=== PATIENT | male | born 1975 | race Caucasian/White ===

== ENCOUNTER 2018-03-16 10:52 | Emergency (ER) | payer OTHER ==
[2018-03-16 11:04] VITALS: BP 150/88
--- NOTE | 2018-03-16 13:05 | ED Physician Documentation ---
History of Present Illness - Stated complaint Stated Complaint: PANIC ATTACK - Chief complaint Chief Complaint: MHE - History obtained from History obtained from: Patient - History of Present Illness Timing: Today Pain level max: 0 Pain level now: 0 Improved by: nothing Worsened by: stress, divorce - Additonal information Additional information: Patient is a 43-year-old male who presents to the emergency department with increasing anxiety over the past week or 2. He does have a history of anxiety as well as schizoaffective disorder. He is going through a divorce. Does not currently feel suicidal or homicidal. Is not having hallucinations. Has a primary care provider at the [employer] [facility] but has not seen them yet about this. He has an appointment with his counselor next week. He is requesting something to help with anxiety. Review of Systems Constitutional: denies: Fever, Chills Ears: denies: Ear pain Nose: denies: Rhinorrhea / runny nose, Congestion Throat: denies: Sore throat Cardiac: denies: Chest pain / pressure Respiratory: denies: Dyspnea GI: denies: Nausea, Vomiting, Diarrhea Skin: denies: Rash Musculoskeletal: denies: Neck pain, Back pain Neurologic: denies: Focal weakness, Numbness, Headache Psychiatric: reports: Anxiety. denies: Depressed, Suicidal, Homicidal, Hallucinations PD PAST MEDICAL HISTORY - Past Medical History Past Medical History: Yes Psych: Anxiety, Other (schizoaffective.) - Present Medications Home Medications: Ambulatory Orders Medication Instructions Recorded Confirmed LORazepam [Ativan] 0.5 mg PO Q8H PRN #10 tablet 03/16/18 - Allergies Allergies/Adverse Reactions: Allergies Allergy/AdvReac Type Severity Reaction Status Date / Time No Known Drug Allergies Allergy Verified 03/16/18 11:05 PD ED PE NORMAL - Vitals Vital signs reviewed: Yes - General General: Alert and oriented X 3, No acute distress, Well developed/nourished, Other (well groomed) - HEENT HEENT: PERRL, Moist mucous membranes - Neck Neck: Supple, no meningeal sign - Cardiac Cardiac: RRR, Strong equal pulses - Respiratory Respiratory: No respiratory distress, Clear bilaterally - Abdomen Abdomen: Soft, Non tender, Non distended - Derm Derm: Warm and dry - Extremities Extremities: No edema - Neuro Neuro: Alert and oriented X 3 - Psych Psych: Normal mood, Normal affect Results - Vitals Vitals: Vital Signs - 24 hr 03/16/18 11:00 Temperature 36 C L Heart Rate 65 Respiratory 16 Rate Blood Pressure 150/88 H O2 Saturation 99 Oxygen O2 Source Room air PD MEDICAL DECISION MAKING - ED course Complexity details: considered differential, d/w patient ED course: Patient is a 43-year-old male who presents to the emergency department with what appears to be increasing anxiety. He is well-appearing, nontoxic. Afebrile. No suicidal or homicidal ideation. Crisis resources given. He is able to contract for safety. Will prescribe Ativan for him and follow-up with his doctor. Patient counseled regarding signs and symptoms for which I believe and urgent re-evaluation would be necessary. Patient with good understanding of and agreement to plan and is comfortable going home at this time This document was made in part using voice recognition software. While efforts are made to proofread this document, sound alike and grammatical errors may occur. Departure - Departure Disposition: 01 Home, Self Care Clinical Impression: Anxiety Condition: Good Instructions: ED Panic Attack Follow-Up: ANKUR TRINH [Primary Care Provider] - Within 1 week Prescriptions: LORazepam [Ativan] 0.5 mg PO Q8H PRN #10 tablet PRN Reason: anxiety Comments: Use the Ativan as needed for anxiety. Follow-up with your doctor for further care. Crisis Line and is available to talk to someone [email or web address] is also available to chat with someone online if you prefer. There are also many resources on this website and apps for your phone to help with your mental health You can also text the word START to [phone] to chat with someome via text.
== END 2018-03-16 13:13 | disposition home or self-care (01) ==
LOC: ED 10:52
DX: F41.9 Anxiety disorder, unspecified (principal); F25.9 Schizoaffective disorder, unspecified
CPT/HCPCS: 99283

== ENCOUNTER 2018-04-02 11:48 | Emergency (ER) | payer OTHER ==
[2018-04-02 12:08] VITALS: BP 123/84
[2018-04-02 12:28] LABS: BASOPHILS % (AUTO) 0.6 %; EOSINOPHILS # (AUTO) 0.1 10^3/uL (0.0-0.7); EOSINOPHILS % (AUTO) 0.9 %; HGB - HEMOGLOBIN 15.9 g/dL (14.0-18.0); LYMPHOCYTES # (AUTO) 1.3 10^3/uL (1.5-3.5); LYMPHOCYTES % (AUTO) 22.5 %; MEAN CORPUSCULAR HEMOGLOBIN 34.9 pg (27.0-31.0); MEAN CORPUSCULAR HGB CONC 36.4 g/dL (32.0-36.0); MEAN CORPUSCULAR VOLUME 95.9 fL (80.0-94.0); MEAN PLATELET VOLUME 6.9 fL (7.4-11.4); MONOCYTES # (AUTO) 0.3 10^3/uL (0.0-1.0); MONOCYTES % (AUTO) 5.1 %; NEUTROPHILS % (AUTO) 70.9 %; PLT - PLATELET COUNT 265 10^3/uL (130-450); RED BLOOD COUNT 4.56 10^6/uL (4.70-6.10); RED CELL DISTRIBUTION WIDTH 12.3 % (12.0-15.0); WHITE BLOOD COUNT 5.6 x10^3/uL (4.8-10.8)
[2018-04-02 12:36] LABS: MUDS CUTOFF CONCENTRATIONS CUTOFF CONC BELOW:
[2018-04-02 12:42] LABS: BILIRUBIN,URINE NEGATIVE (NEGATIVE); GLUCOSE, URINE (UA) NEGATIVE (NEGATIVE); KETONES,URINE (UA) NEGATIVE (NEGATIVE); LEUKOCYTE ESTERASE, URINE NEGATIVE (NEGATIVE); NITRITE,URINE NEGATIVE (NEGATIVE); OCCULT BLOOD,URINE NEGATIVE (NEGATIVE); PROTEIN,URINE NEGATIVE (NEGATIVE); UROBILINOGEN,URINE 0.2 (NORMAL) E.U./dL (NORMAL)
[2018-04-02 12:44] LABS: CLARITY,URINE CLEAR (CLEAR)
[2018-04-02 12:44] LABS: ACETAMINOPHEN < 10 ug/mL (10-30); ALBUMIN 4.8 g/dL (3.2-5.5); ALBUMIN/GLOBULIN RATIO 1.8 (1.0-2.2); ALKALINE PHOSPHATASE 55 IU/L (42-121); ALT ALANINE AMINOTRANSFERASE 17 IU/L (10-60); AST ASPARTATE AMINOTRANSFERASE 19 IU/L (10-42); BILIRUBIN,TOTAL 1.1 mg/dL (0.2-1.0); BUN - BLOOD UREA NITROGEN 16 mg/dL (6-20); CARBON DIOXIDE - CO2 29 mmol/L (21-32); CHLORIDE 98 mmol/L (101-111); CREATININE 0.9 mg/dL (0.6-1.2); GFR - MDRD 93 (>89); GLUCOSE 107 mg/dL (70-100); LIPASE 29 U/L (22-51); SALICYLATE < 6.0 mg/dL; SODIUM 137 mmol/L (135-145); TOTAL PROTEIN 7.4 g/dL (6.7-8.2)
--- NOTE | 2018-04-02 12:50 | ED Physician Documentation ---
PD HPI MHE - Stated complaint Stated Complaint: MHE - Chief complaint Chief Complaint: MHE - History obtained from History obtained from: Patient - History of Present Illness Primary symptom: Depression, Anxiety Timing - onset: How many weeks ago (several) Pain level max: 0 Pain level now: 0 Similar symptoms before: Diagnosis ( anxiety, schizoaffective) Recently seen: Clinic - Additional information Additional information: Patient is a 43-year-old male with a history of schizophrenia and anxiety. He recently is going through divorce and has been feeling more anxious. Was seen here and started on medication for anxiety a few weeks ago, followed up with his doctor who placed him on Zoloft. Does not feel that this is helping. Is not currently seeing a counselor. Is seen by a Usha Trinh at the [facility]. for his PCM. Denies suicidal or homicidal ideation. no hallucinations. Review of Systems Constitutional: denies: Fever, Chills Throat: denies: Sore throat Cardiac: denies: Chest pain / pressure Respiratory: denies: Cough GI: denies: Nausea, Vomiting, Diarrhea Skin: denies: Rash Musculoskeletal: denies: Neck pain, Back pain PD PAST MEDICAL HISTORY - Past Medical History Past Medical History: Yes Cardiovascular: Atrial fibrillation Respiratory: None Neuro: None Endocrine/Autoimmune: None GI: None : None HEENT: None Psych: Anxiety, Other Musculoskeletal: None Derm: None - Past Surgical History Past Surgical History: Yes Cardiovascular: Other - Present Medications Home Medications: Ambulatory Orders Medication Instructions Recorded Confirmed LORazepam [Ativan] 0.5 mg PO Q8H PRN #10 tablet 03/16/18 - Allergies Allergies/Adverse Reactions: Allergies Allergy/AdvReac Type Severity Reaction Status Date / Time No Known Drug Allergies Allergy Verified 03/16/18 11:05 - Social History Does the pt smoke?: No Smoking Status: Never smoker Does the pt drink ETOH?: No Does the pt have substance abuse?: No - Immunizations Immunizations are current?: Yes - POLST Patient has POLST: No PD ED PE NORMAL - Vitals Vital signs reviewed: Yes - General General: Alert and oriented X 3, No acute distress - HEENT HEENT: Moist mucous membranes - Neck Neck: Supple, no meningeal sign - Cardiac Cardiac: RRR, Strong equal pulses - Respiratory Respiratory: No respiratory distress, Clear bilaterally - Abdomen Abdomen: Soft, Non tender, Non distended - Back Back: No spinal TTP - Derm Derm: Warm and dry - Neuro Neuro: Alert and oriented X 3 - Psych Psych: Normal mood, Other (tearful at times) Results - Vitals Vitals: Vital Signs - 24 hr 04/02/18 12:02 Temperature 36.9 C Heart Rate 77 Respiratory 14 Rate Blood Pressure 123/84 H O2 Saturation 97 Oxygen O2 Source Room air - Labs Labs: Laboratory Tests 04/02/18 04/02/18 04/02/18 12:18 12:20 12:20 WBC 5.6 RBC 4.56 L Hgb 15.9 Hct 43.7 MCV 95.9 H MCH 34.9 H MCHC 36.4 H RDW 12.3 Plt Count 265 MPV 6.9 L Neut # (Auto) 4.0 Lymph # (Auto) 1.3 L [place] # (Auto) 0.3 Eos # (Auto) 0.1 Baso # (Auto) 0.0 Absolute Nucleated RBC 0.01 Nucleated RBC % 0.1 Sodium 137 Potassium 4.0 Chloride 98 L Carbon Dioxide 29 Anion Gap 10.0 BUN 16 Creatinine 0.9 Estimated GFR (MDRD) 93 Glucose 107 H Calcium 9.0 Total Bilirubin 1.1 H AST 19 ALT 17 Alkaline Phosphatase 55 Total Protein 7.4 Albumin 4.8 Globulin 2.6 Albumin/Globulin Ratio 1.8 Lipase 29 TSH Urine Color YELLOW Urine Clarity CLEAR Urine pH 6.0 Ur Specific [place] 1.025 Urine Protein NEGATIVE Urine Glucose (UA) NEGATIVE Urine Ketones NEGATIVE Urine Occult Blood NEGATIVE Urine Nitrite NEGATIVE Urine Bilirubin NEGATIVE Urine Urobilinogen 0.2 (NORMAL) Ur Leukocyte Esterase NEGATIVE Ur Microscopic Review NOT INDICATED Urine Culture Comments NOT INDICATED Salicylates < 6.0 Urine Opiates Screen NEGATIVE Ur Oxycodone Screen NEGATIVE Urine Methadone Screen NEGATIVE Ur Propoxyphene Screen NEGATIVE Acetaminophen < 10 L Ur Barbiturates Screen NEGATIVE Ur Tricyclics Screen NEGATIVE Ur Phencyclidine Scrn NEGATIVE Ur Amphetamine Screen NEGATIVE U Methamphetamines Scrn NEGATIVE U Benzodiazepines Scrn NEGATIVE Urine Cocaine Screen NEGATIVE U Cannabinoids Screen POSITIVE H Ethyl Alcohol < 5.0 04/02/18 12:20 WBC RBC Hgb Hct MCV MCH MCHC RDW Plt Count MPV Neut # (Auto) Lymph # (Auto) [place] # (Auto) Eos # (Auto) Baso # (Auto) Absolute Nucleated RBC Nucleated RBC % Sodium Potassium Chloride Carbon Dioxide Anion Gap BUN Creatinine Estimated GFR (MDRD) Glucose Calcium Total Bilirubin AST ALT Alkaline Phosphatase Total Protein Albumin Globulin Albumin/Globulin Ratio Lipase TSH 1.20 Urine Color Urine Clarity Urine pH Ur Specific [place] Urine Protein Urine Glucose (UA) Urine Ketones Urine Occult Blood Urine Nitrite Urine Bilirubin Urine Urobilinogen Ur Leukocyte Esterase Ur Microscopic Review Urine Culture Comments Salicylates Urine Opiates Screen Ur Oxycodone Screen Urine Methadone Screen Ur Propoxyphene Screen Acetaminophen Ur Barbiturates Screen Ur Tricyclics Screen Ur Phencyclidine Scrn Ur Amphetamine Screen U Methamphetamines Scrn U Benzodiazepines Scrn Urine Cocaine Screen U Cannabinoids Screen Ethyl Alcohol PD MEDICAL DECISION MAKING - ED course Complexity details: reviewed results, re-evaluated patient, considered differential, d/w patient, d/w recruiting and selection consultant (Dr. Trinh and concerned about his safety, but if he is safe, can follow up in with [facility] for further care) ED course: Patient is a 43-year-old male with a history of schizoaffective disorder who has had depression lately without suicidal thoughts. Discussed the case with his primary care physician who will have him follow-up with psychiatry tomorrow at 10 AM. Also social work evaluated the patient as well. Patient was recently started on Zoloft and will continue this until he sees a psychiatrist in the morning patient counseled regarding signs and symptoms for which I believe and urgent re-evaluation would be necessary. Patient with good understanding of and agreement to plan and is comfortable going home at this time This document was made in part using voice recognition software. While efforts are made to proofread this document, sound alike and grammatical errors may occur. Patient is able to contract for safety. Departure - Departure Disposition: 01 Home, Self Care Clinical Impression: Anxiety Schizoaffective disorder Qualifiers: Schizoaffective disorder type: unspecified Qualified Code(s): F25.9 - Schizoaffective disorder, unspecified Condition: Stable Instructions: ED Stress React Follow-Up: USHA TRINH [Primary Care Provider] - Comments: Follow up with psychiatry as scheduled tomorrow at 10am. Return if you worsen. Crisis Line and is available to talk to someone [email or web address] is also available to chat with someone online if you prefer. There are also many resources on this website and apps for your phone to help with your mental health You can also text the word START to [phone] to chat with someome via text. Discharge Date/Time: 04/02/18 14:10
[2018-04-02 12:51] LABS: AMPHETAMINE SCREEN,URINE NEGATIVE (NEGATIVE); BENZODIAZEPINES SCREEN, URINE NEGATIVE (NEGATIVE); COCAINE SCREEN URINE NEGATIVE (NEGATIVE); METHADONE SCREEN, URINE NEGATIVE (NEGATIVE); METHAMPHETAMINES SCREEN, URINE NEGATIVE (NEGATIVE); OPIATE SCREEN, URINE NEGATIVE (NEGATIVE); OXYCODONE SCREEN, URINE NEGATIVE (NEGATIVE); PROPOXYPHENE SCREEN, URINE NEGATIVE (NEGATIVE); TRICYCLIC ANTIDEPRESSANT,URINE NEGATIVE (NEGATIVE)
[2018-04-02] MEDS ORDERED: LORazepam 0.5 MG TABLET PO STA (12:54)
== END 2018-04-02 14:10 | disposition home or self-care (01) ==
LOC: ED 11:48
DX: F41.9 Anxiety disorder, unspecified (principal); F25.9 Schizoaffective disorder, unspecified
CPT/HCPCS: 36415; 80053; 80306; 80307; 80320; 80329; 81003; 83690; 84443; 85025; 99283; A9270; 81001; 87086

== ENCOUNTER 2019-04-06 16:24 | Emergency (ER) | payer OTHER ==
[2019-04-06 19:00] VITALS: BP 140/69
--- NOTE | 2019-04-06 19:57 | ED Physician Documentation ---
History of Present Illness - Stated complaint Stated Complaint: GLF - HEAD INJURY - Chief complaint Chief Complaint: Trauma Hd/Nk - Additonal information Additional information: This is a 44 year old male who presents with headache after head trauma. This morning he was lifting [place] and he [place] hitting his head on a rock and the log also glanced off his head. He had no LOC, no weakness, numbess, or tingling. He has had a mild-mod headache since then and vomited twice. He is not nauseated now. Review of Systems Skin: denies: Lesions Musculoskeletal: denies: Neck pain Neurologic: reports: Head injury PD PAST MEDICAL HISTORY - Past Medical History Past Medical History: Yes Cardiovascular: Atrial fibrillation Respiratory: None Neuro: None Endocrine/Autoimmune: None GI: None : None HEENT: None Psych: Anxiety, Other Musculoskeletal: None Derm: None - Past Surgical History Past Surgical History: Yes Cardiovascular: Other - Present Medications Home Medications: Ambulatory Orders Medication Instructions Recorded Confirmed LORazepam [Ativan] 0.5 mg PO Q8H PRN #10 tablet 03/16/18 - Allergies Allergies/Adverse Reactions: Allergies Allergy/AdvReac Type Severity Reaction Status Date / Time No Known Drug Allergies Allergy Verified 04/06/19 16:30 - Social History Does the pt smoke?: No Smoking Status: Never smoker Does the pt drink ETOH?: No Does the pt have substance abuse?: Yes Substance Use and Type: Marijuana - Immunizations Immunizations are current?: Yes - POLST Patient has POLST: No PD ED PE NORMAL - Vitals Vital signs reviewed: Yes - General General: Alert and oriented X 3 - HEENT HEENT: Other (No contusions or hematomas. Slight forehead tenderness on palpation, no crepitus or stepoff) - Neck Neck: Supple, no meningeal sign, No bony TTP - Cardiac Cardiac: RRR - Respiratory Respiratory: No respiratory distress - Derm Derm: Warm and dry - Extremities Extremities: No deformity - Neuro Neuro: Alert and oriented X 3, dining room maid 2-12 intact, No motor deficit, No sensory deficit, Normal speech Results - Vitals Vitals: Vital Signs - 24 hr 04/06/19 19:00 Temperature 36.9 C Heart Rate 87 Respiratory 12 Rate Blood Pressure 140/69 H O2 Saturation 96 Oxygen O2 Source Room air - Rads (name of study) CT WO Radiology: Other (No intracranial abnormality) PD MEDICAL DECISION MAKING - ED course Complexity details: considered differential (ICH, concussion) ED course: Pt is fairly low risk for head bleed, but he has had multiple episodes of vomiting and states he feels a bit foggy headed. I discussed CT and he would like this done. CT was negative and it appears patient has suffered a concussion. Concussion care and precautions discussed and patient was discharged home. Departure - Departure Disposition: 01 Home, Self Care Clinical Impression: Concussion Qualifiers: Encounter type: initial encounter Loss of consciousness presence/duration: without LOC Qualified Code(s): S06.0X0A - Concussion without loss of consciousness, initial encounter Condition: Good Follow-Up: ANKUR TRINH [Primary Care Provider] - Within 1 week Comments: Your scan does not show signs of fractures or bleeds. You appear to have a concussion. Please take it easy for the next several days, you can take Tylenol ibuprofen for your headache. If you are having worsening symptoms such as weakness or numbness or severe headache please return to the emergency department. Otherwise please follow-up with your primary care provider. Discharge Date/Time: 04/06/19 21:43
--- NOTE | 2019-04-06 20:45 | CT Report ---
Reason: Fall, hit head on rock and log, vomiting Procedure Date: 04/06/2019 Accession Number: [id number] / [id number] Procedure: CT - HEAD WO CPT Code: Final Report FULL RESULT: EXAM: CT HEAD EXAM DATE: 04/06/2019 08:16 PM. CLINICAL HISTORY: Fall, hit head on rock and log, vomiting. Hit left side of head on log. COMPARISON: None. TECHNIQUE: Multiaxial CT images were obtained from the foramen magnum to the vertex. Reformats: Sagittal and coronal. IV contrast: None. In accordance with CT protocol optimization, one or more of the following dose reduction techniques were utilized for this exam: automated exposure control, adjustment of mA and/or KV based on patient size, or use of iterative reconstructive technique. FINDINGS: Parenchyma: No mass-effect or midline shift. No evidence for edema. No intracranial hemorrhage is seen. Extraaxial Spaces: Normal for age. No subdural or epidural collections identified. Ventricles: Normal in size and position. Sinuses and Orbits: Imaged paranasal sinuses, orbits, and mastoids show no significant abnormality. Bones: No evidence of fracture or calvarial defect. Other: None. IMPRESSION: Normal head CT. RADIA
== END 2019-04-06 21:43 | disposition home or self-care (01) ==
LOC: ED 16:24
DX: S06.0X0A Concussion without loss of consciousness, initial encounter (principal); W18.30XA Fall on same level, unspecified, initial encounter; Y93.89 Activity, other specified; Y92.832 Beach as the place of occurrence of the external cause
CPT/HCPCS: 70450; 99282; 99283

== ENCOUNTER 2020-09-28 07:07 | Emergency (ER) | payer OTHER ==
[2020-09-28] MEDS ORDERED: LORazepam 2 MG/ML VIAL IVP STA (07:29)
--- NOTE | 2020-09-28 07:32 | ED Physician Documentation ---
PD HPI CHEST PAIN - Stated complaint Stated Complaint: CHEST PX/ANXIETY - Chief complaint Chief Complaint: Cardiac - History obtained from History obtained from: Patient - History of Present Illness Timing - onset: Yesterday Timing - onset during: Rest Timing - duration: Days (2) Pain level max: 0 Pain level now: 0 Quality: No: Pressure, Tightness, Aching, Sharp, Tearing, Dull, Stabbing, Throbbing, Indigestion, Like prior ACS, Pain Associated symptoms: No: Shortness of air, Diaphoresis, Nausea, Vomiting, Feeling faint / dizzy, General Weakness, Palpitations, Cough - Additional information Additional information: Patient is a 45-year-old male who presents to the emergency department stating he has increase in anxiety recently. He states he is moving and this has been stressful for him. He states that earlier his heart was "going crazy". He was having palpitations at that time. No chest pain. No shortness of breath. Has a longstanding history of anxiety. On Wellbutrin. Recently started Adderall. He states he feels like there is energy and him that "needs to get out". Nothing makes it better or worse. Review of Systems Ten Systems: 10 systems reviewed and negative Constitutional: denies: Fever, Chills Respiratory: denies: Cough GI: denies: Vomiting, Diarrhea Skin: denies: Rash Musculoskeletal: denies: Neck pain, Back pain Neurologic: denies: Headache, Head injury, LOC Psychiatric: reports: Anxiety, Insomnia. denies: Depressed, Suicidal, Homicidal, Hallucinations, Delusions PD PAST MEDICAL HISTORY - Past Medical History Cardiovascular: Atrial fibrillation Respiratory: None Neuro: None Endocrine/Autoimmune: None GI: None : None HEENT: None Psych: Anxiety, Other Musculoskeletal: None Derm: None - Past Surgical History Past Surgical History: Yes Cardiovascular: Other - Present Medications Home Medications: Ambulatory Orders Medication Instructions Recorded Confirmed LORazepam [Ativan] 0.5 mg PO Q8H PRN #10 tablet 03/16/18 Buspirone HCl 1 tab PO DAILY 09/28/20 09/28/20 Dextroamp-Amphet 20 mg PO DAILY 09/28/20 09/28/20 LORazepam [Ativan] 0.5 mg PO Q8H PRN #10 tablet 09/28/20 Tadalafil [Cialis] 1 tab PO PRN PRN 09/28/20 09/28/20 buPROPion [Wellbutrin Sr] 1 tab PO DAILY 09/28/20 09/28/20 - Allergies Allergies/Adverse Reactions: Allergies Allergy/AdvReac Type Severity Reaction Status Date / Time No Known Drug Allergies Allergy Verified 09/28/20 07:19 - Social History Does the pt smoke?: No Smoking Status: Never smoker Does the pt drink ETOH?: No Does the pt have substance abuse?: Yes - Immunizations Immunizations are current?: Yes - POLST Patient has POLST: No PD ED PE NORMAL - Vitals Vital signs reviewed: Yes - General General: Alert and oriented X 3, No acute distress, Well developed/nourished - HEENT HEENT: PERRL, Moist mucous membranes - Neck Neck: Supple, no meningeal sign - Cardiac Cardiac: RRR, No murmur, Strong equal pulses - Respiratory Respiratory: No respiratory distress, Clear bilaterally - Abdomen Abdomen: Soft, Non tender, Non distended - Derm Derm: Warm and dry - Extremities Extremities: No edema, No calf tenderness / cord - Neuro Neuro: Alert and oriented X 3 - Psych Psych: Normal mood, Normal affect Results - Vitals Vitals: Vital Signs - 24 hr 09/28/20 09/28/20 07:14 07:57 Temperature 36.1 C L Heart Rate 61 56 L Respiratory 15 15 Rate Blood Pressure 183/89 H 170/88 H O2 Saturation 100 98 Oxygen O2 Source Room air - EKG (time done) 0717 Rate: Rate (enter#) (57) Rhythm: NSR [place]: Normal Intervals: Normal VA QRS: Normal Ischemia: ST elevation c/w repol - Labs Labs: Laboratory Tests 09/28/20 09/28/20 09/28/20 07:19 07:19 07:19 WBC 4.1 L RBC 4.48 L Hgb 15.3 Hct 41.9 L MCV 93.5 MCH 34.2 H MCHC 36.5 H RDW 11.9 L Plt Count 237 MPV 9.3 Neut # (Auto) 2.2 Lymph # (Auto) 1.6 [place] # (Auto) 0.3 Eos # (Auto) 0.1 Baso # (Auto) 0.0 Absolute Nucleated RBC 0.00 Nucleated RBC % 0.0 Sodium 143 Potassium 4.1 Chloride 106 Carbon Dioxide 28 Anion Gap 9.0 BUN 15 Creatinine 1.1 Estimated GFR (MDRD) 73 L Glucose 115 H Calcium 9.5 Total Bilirubin 1.1 H AST 28 ALT 24 Alkaline Phosphatase 61 Troponin I High Sens 4.3 Total Protein 7.4 Albumin 4.7 Globulin 2.7 Albumin/Globulin Ratio 1.7 Lipase 23 - Rads (name of study) CXR Radiology: Prelim report reviewed, EMP read contemporaneously, See rad report (No acute disease) PD MEDICAL DECISION MAKING - ED course Complexity details: reviewed results, re-evaluated patient, considered differential (No ST elevation MA, no aortic dissection, no PE, no tension pneumothorax, no aortic aneurysm), d/w patient ED course: Patient with palpitations and anxiety. Symptoms improved with Ativan. No findings on laboratory testing. No findings on EKG or telemetry. Normal x-ray. This could be due to the Adderall he recently started. Recommend that he follow-up with his doctor this week to discuss changing medications. Patient counseled regarding signs and symptoms for which I believe and urgent re- evaluation would be necessary. Patient with good understanding of and agreement to plan and is comfortable going home at this time This document was made in part using voice recognition software. While efforts are made to proofread this document, sound alike and grammatical errors may occur. Departure - Departure Disposition: 01 Home, Self Care Clinical Impression: Anxiety, Palpitations Condition: Good Instructions: ED Panic Attack Follow-Up: Your,doctor in 1 week [Other] Prescriptions: LORazepam [Ativan] 0.5 mg PO Q8H PRN #10 tablet PRN Reason: Anxiety Comments: Please follow-up with your doctor this week to discuss changing your Adderall to a different medication. I would call their office today to see if they would like you to discontinue the Adderall or if they want to taper you and change you to a different medication. Return if you worsen. Do not drive or operate heavy machinery for the next 8 hours as you were given Ativan here.
[2020-09-28 07:38] LABS: BASOPHILS % (AUTO) 0.7 %; EOSINOPHILS # (AUTO) 0.1 10^3/uL (0.0-0.7); EOSINOPHILS % (AUTO) 1.2 %; HCT - HEMATOCRIT 41.9 % (42.0-52.0); HGB - HEMOGLOBIN 15.3 g/dL (14.0-18.0); LYMPHOCYTES # (AUTO) 1.6 10^3/uL (1.5-3.5); LYMPHOCYTES % (AUTO) 37.9 %; MEAN CORPUSCULAR HEMOGLOBIN 34.2 pg (27.0-31.0); MEAN CORPUSCULAR HGB CONC 36.5 g/dL (32.0-36.0); MEAN CORPUSCULAR VOLUME 93.5 fL (80.0-94.0); MEAN PLATELET VOLUME 9.3 fL (7.4-11.4); MONOCYTES # (AUTO) 0.3 10^3/uL (0.0-1.0); MONOCYTES % (AUTO) 7.1 %; NEUTROPHILS # (AUTO) 2.2 10^3/uL (1.5-6.6); NEUTROPHILS % (AUTO) 52.9 %; PLT - PLATELET COUNT 237 10^3/uL (130-450); RED BLOOD COUNT 4.48 10^6/uL (4.70-6.10); RED CELL DISTRIBUTION WIDTH 11.9 % (12.0-15.0); WHITE BLOOD COUNT 4.1 x10^3/uL (4.8-10.8)
--- OUTSIDE RECORDS SUMMARY | 2020-09-28 07:41 | EXTERNAL MEDICAL SUMMARY RPT | Continuity of Care Document ---
:1975 Demographics Phone Unavailable Preferred Language Unknown Marital Status Unknown Anabaptism Affiliation Unknown Race Unknown Ethnic Group Unknown Author Organization [facility] Address [address] [place] [address] Phone Social History date description facility [id number]
[2020-09-28 07:53] LABS: ALBUMIN 4.7 g/dL (3.2-5.5); ALBUMIN/GLOBULIN RATIO 1.7 (1.0-2.2); BILIRUBIN,TOTAL 1.1 mg/dL (0.2-1.0); CALCIUM 9.5 mg/dL (8.5-10.3); CREATININE 1.1 mg/dL (0.6-1.2); POTASSIUM 4.1 mmol/L (3.5-5.0); TOTAL PROTEIN 7.4 g/dL (6.7-8.2)
--- NOTE | 2020-09-28 08:07 | XRAY Report ---
PROCEDURE: Chest 1 View X-Ray INDICATIONS: Chest Pain TECHNIQUE: One view of the chest was acquired. COMPARISON: None FINDINGS: Surgical changes and devices: None. Lungs and pleura: No pleural effusions or pneumothorax. Lungs are clear. Mediastinum: Mediastinal contours appear normal. Heart size is normal. Bones and chest wall: No suspicious bony lesions. Overlying soft tissues appear unremarkable. IMPRESSION: Normal for age, source of current symptoms is not seen. Reviewed by: Heri Velasquez MD on 09/28/2020 8:06 AM PDT Approved by: Heri Velasquez MD on 09/28/2020 8:06 AM PDT Station ID: [id number]
[2020-09-28 09:05] VITALS: BP 159/76
== END 2020-09-28 09:06 | disposition home or self-care (01) ==
LOC: ED 07:07
DX: F41.9 Anxiety disorder, unspecified (principal); R00.2 Palpitations
CPT/HCPCS: 36415; 71045; 80053; 83690; 84484; 85025; 93005; 96374; 99284; J2060

== ENCOUNTER 2020-10-03 22:22 | Emergency (ER) | payer OTHER ==
[2020-10-04] MEDS ORDERED: cloNIDine 0.1 MG TABLET PO STA (00:51)
[2020-10-04] MEDS ORDERED: LORazepam 1 MG TABLET PO STA (00:51)
--- NOTE | 2020-10-04 00:55 | ED Physician Documentation ---
History of Present Illness - Stated complaint Stated Complaint: WITHDRAWAL - Chief complaint Chief Complaint: General - History obtained from History obtained from: Patient - History of Present Illness Timing: How many days ago (4) - Additonal information Additional information: 45-year-old male has been using Kratom for the past 2 years and he has had an escalating dose and is now discontinued the Kratom about 4 days ago. He is having difficulty sleeping and is having some shocking-like sensation going down his arms when he lays down. Review of Systems Constitutional: denies: Fever Eyes: denies: Decreased vision Ears: denies: Ear pain Nose: denies: Congestion Throat: denies: Sore throat Cardiac: denies: Chest pain / pressure Respiratory: denies: Dyspnea, Cough GI: denies: Abdominal Pain, Nausea, Vomiting, Constipation, Diarrhea : denies: Dysuria, Frequency PD PAST MEDICAL HISTORY - Past Medical History Past Medical History: Yes Cardiovascular: Atrial fibrillation Respiratory: None Neuro: None Endocrine/Autoimmune: None GI: None : None HEENT: None Psych: Anxiety, Other Musculoskeletal: None Derm: None - Past Surgical History Past Surgical History: Yes Cardiovascular: Other - Present Medications Home Medications: Ambulatory Orders Medication Instructions Recorded Confirmed Buspirone HCl 1 tab PO DAILY 09/28/20 09/28/20 buPROPion [Wellbutrin Sr] 1 tab PO DAILY 09/28/20 09/28/20 Cariprazine HCl [Vraylar] 1.5 mg PO 10/04/20 LORazepam [Ativan] 1 mg PO Q8HR PRN #14 tablet 10/04/20 cloNIDine [Catapres] 0.1 mg PO BID #20 tablet 10/04/20 - Allergies Allergies/Adverse Reactions: Allergies Allergy/AdvReac Type Severity Reaction Status Date / Time No Known Drug Allergies Allergy Verified 10/03/20 22:28 - Social History Does the pt smoke?: No Smoking Status: Never smoker Does the pt drink ETOH?: No Does the pt have substance abuse?: Yes - Immunizations Immunizations are current?: Yes - POLST Patient has POLST: No PD ED PE NORMAL - Vitals Vital signs reviewed: Yes (hypertensive) - General General: Alert and oriented X 3, No acute distress, Well developed/nourished - HEENT HEENT: Atraumatic, PERRL, EOMI - Neck Neck: Supple, no meningeal sign, No bony TTP - Cardiac Cardiac: RRR, No murmur - Respiratory Respiratory: No respiratory distress, Clear bilaterally - Abdomen Abdomen: Soft, Non tender - Back Back: No CVA TTP, No spinal TTP - Derm Derm: Normal color, Warm and dry, No rash - Extremities Extremities: No deformity, No edema - Neuro Neuro: Alert and oriented X 3, 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, No motor deficit, No sensory deficit, Normal speech Eye Opening: Spontaneous Motor: Obeys Commands Verbal: Oriented GCS Score: 15 - Psych Psych: Normal mood, Normal affect Results - Vitals Vitals: Vital Signs - 24 hr 10/03/20 10/04/20 10/04/20 22:25 00:57 01:03 Temperature 36.3 C L 37.1 C 36.5 C Heart Rate 56 L 52 L 50 L Respiratory 18 18 16 Rate Blood Pressure 149/85 H 147/97 H 123/61 O2 Saturation 98 99 99 Oxygen O2 Source Room air PD MEDICAL DECISION MAKING - ED course Complexity details: considered differential, d/w patient ED course: 45-year-old male with a history of kratom use is in withdrawal and the recommendation and up-to-date is to treat this similarly to a narcotic withdrawal with clonidine. The patient is administered clonidine and Ativan and he is given a prescription for both. Departure - Departure Disposition: 01 Home, Self Care Clinical Impression: Withdrawal complaint Condition: Stable Instructions: ED Withdrawal Narcotic Follow-Up: JAZZMINE Walden [Provider Group] Prescriptions: LORazepam [Ativan] 1 mg PO Q8HR PRN #14 tablet PRN Reason: withdrawal symptoms cloNIDine [Catapres] 0.1 mg PO BID #20 tablet Comments: Hever, today it appears you are withdrawing from kratom and this is apparently similar to narcotic withdrawal which may include some vomiting and diarrhea.The recommendation is to give a medication called clonidine which should help with withdrawal symptoms. In addition I have given you a sedative called Ativan. This may help with your sleep. Discharge Date/Time: 10/04/20 01:03
[2020-10-04 01:13] VITALS: BP 123/61
== END 2020-10-04 01:03 | disposition home or self-care (01) ==
LOC: ED 22:22
DX: F19.939 Other psychoactive substance use, unspecified with withdrawal, unspecified (principal); G47.00 Insomnia, unspecified
CPT/HCPCS: 99282; 99283; A9270; J8499

== ENCOUNTER 2021-08-02 16:29 | Emergency (ER) | payer OTHER ==
[2021-08-02 16:59] LABS: BASOPHILS % (AUTO) 0.4 %; EOSINOPHILS # (AUTO) 0.1 10^3/uL (0.0-0.7); EOSINOPHILS % (AUTO) 0.5 %; HCT - HEMATOCRIT 42.9 % (42.0-52.0); HGB - HEMOGLOBIN 15.9 g/dL (14.0-18.0); LYMPHOCYTES # (AUTO) 1.4 10^3/uL (1.5-3.5); LYMPHOCYTES % (AUTO) 14.1 %; MEAN CORPUSCULAR HEMOGLOBIN 32.6 pg (27.0-31.0); MEAN CORPUSCULAR HGB CONC 37.1 g/dL (32.0-36.0); MEAN CORPUSCULAR VOLUME 87.9 fL (80.0-94.0); MEAN PLATELET VOLUME 8.9 fL (7.4-11.4); MONOCYTES # (AUTO) 0.8 10^3/uL (0.0-1.0); MONOCYTES % (AUTO) 7.4 %; NEUTROPHILS # (AUTO) 7.9 10^3/uL (1.5-6.6); NEUTROPHILS % (AUTO) 77.4 %; PLT - PLATELET COUNT 204 10^3/uL (130-450); RED BLOOD COUNT 4.88 10^6/uL (4.70-6.10); RED CELL DISTRIBUTION WIDTH 11.8 % (12.0-15.0); WHITE BLOOD COUNT 10.2 x10^3/uL (4.8-10.8)
[2021-08-02 17:12] LABS: ALBUMIN 4.6 g/dL (3.2-5.5); ALBUMIN/GLOBULIN RATIO 1.5 (1.0-2.2); BILIRUBIN,TOTAL 1.4 mg/dL (0.2-1.0); CALCIUM 9.1 mg/dL (8.5-10.3); POTASSIUM 3.7 mmol/L (3.5-5.0); TOTAL PROTEIN 7.7 g/dL (6.7-8.2)
--- NOTE | 2021-08-02 17:16 | XRAY Report ---
PROCEDURE: Chest 1 View X-Ray INDICATIONS: Chest Pain TECHNIQUE: One view of the chest was acquired. COMPARISON: 09/28/2020 FINDINGS: Surgical changes and devices: None. Lungs and pleura: No pleural effusions or pneumothorax. Lungs are clear. Mediastinum: Mediastinal contours appear normal. Heart size is normal. Bones and chest wall: No suspicious bony lesions. Overlying soft tissues appear unremarkable. IMPRESSION: Chest without acute cardiopulmonary abnormalities. No focal airspace disease. Reviewed by: Topher Rondon MD on 08/02/2021 5:14 PM PST Approved by: Topher Rondon MD on 08/02/2021 5:14 PM PST Station ID: [id number]
--- NOTE | 2021-08-02 18:38 | ED Physician Documentation ---
PD HPI CHEST PAIN - Stated complaint Stated Complaint: FATIGUE, HOLLINS, LT ARM PAIN - Chief complaint Chief Complaint: Cardiac - History obtained from History obtained from: Patient - Additional information Additional information: 46-year-old gentleman with history of remote A. fib status post ablation about 10 years ago without recurrence not on any cardiac meds. He does have a history in his family of his brother dying of probably a coronary event although he does not know the details at age 43. He has been profoundly fatigued for the last 3 days with headache, exertional shortness of breath. Then today developed about 3 hours of sharp atypical rest pain going from the left upper chest down the inside of the arm which is gone on my evaluation. He took a home COVID test which was negative. No sick contacts. No cough. No fevers. Review of Systems Ten Systems: 10 systems reviewed and negative Constitutional: reports: Fatigue. denies: Fever, Chills, Myalgias Cardiac: reports: Chest pain / pressure. denies: Palpitations Respiratory: reports: Dyspnea. denies: Cough PD PAST MEDICAL HISTORY - Past Medical History Cardiovascular: Atrial fibrillation Respiratory: None Neuro: None Endocrine/Autoimmune: None GI: None : None HEENT: None Psych: Anxiety, Other Musculoskeletal: None Derm: None - Past Surgical History Past Surgical History: Yes Cardiovascular: Other - Present Medications Home Medications: Ambulatory Orders Medication Instructions Recorded Confirmed No Known Home Medications 08/02/21 08/02/21 - Allergies Allergies/Adverse Reactions: Allergies Allergy/AdvReac Type Severity Reaction Status Date / Time No Known Drug Allergies Allergy Verified 08/02/21 16:34 - Social History Does the pt smoke?: No Smoking Status: Never smoker (But he does vape) Does the pt drink ETOH?: No Does the pt have substance abuse?: Yes Substance Use and Type: Other (History of kratom use, no current use.) - Immunizations Immunizations are current?: Yes - POLST Patient has POLST: No PD ED PE NORMAL - Vitals Vital signs reviewed: Yes - General General: Alert and oriented X 3, No acute distress - HEENT HEENT: PERRL, EOMI - Neck Neck: Supple, no meningeal sign, No bony TTP - Cardiac Cardiac: RRR, No murmur - Respiratory Respiratory: No respiratory distress, Clear bilaterally - Abdomen Abdomen: Normal bowel sounds, Soft, Non tender - Back Back: No CVA TTP, No spinal TTP - Derm Derm: Normal color, Warm and dry - Extremities Extremities: No edema, No calf tenderness / cord - Neuro Neuro: Alert and oriented X 3, Normal speech - Psych Psych: Normal mood, Normal affect Results - Vitals Vitals: Vital Signs - 24 hr 08/02/21 08/02/21 16:34 18:40 Temperature 37.4 C Heart Rate 83 95 Respiratory 20 16 Rate Blood Pressure 132/89 H 127/85 H O2 Saturation 98 96 Oxygen O2 Source Room air - EKG (time done) 1643 Rate: Rate (enter#) (81) Rhythm: NSR [place]: Normal Intervals: Normal [place] QRS: Normal Ischemia: Normal ST segments Computer interpretation: Agree with computer - Labs Labs: Laboratory Tests 08/02/21 08/02/21 08/02/21 16:53 16:53 16:53 WBC 10.2 RBC 4.88 Hgb 15.9 Hct 42.9 MCV 87.9 MCH 32.6 H MCHC 37.1 H RDW 11.8 L Plt Count 204 MPV 8.9 Neut # (Auto) 7.9 H Lymph # (Auto) 1.4 L [place] # (Auto) 0.8 Eos # (Auto) 0.1 Baso # (Auto) 0.0 Absolute Nucleated RBC 0.00 Nucleated RBC % 0.0 Sodium 133 L Potassium 3.7 Chloride 97 L Carbon Dioxide 25 Anion Gap 11.0 BUN 14 Creatinine 1.0 Estimated GFR (MDRD) 81 L Glucose 102 H Calcium 9.1 Total Bilirubin 1.4 H AST 18 ALT 26 Alkaline Phosphatase 68 Troponin I High Sens 5.0 Total Protein 7.7 Albumin 4.6 Globulin 3.1 Albumin/Globulin Ratio 1.5 Lipase 36 08/02/21 18:40 WBC RBC Hgb Hct MCV MCH MCHC RDW Plt Count MPV Neut # (Auto) Lymph # (Auto) [place] # (Auto) Eos # (Auto) Baso # (Auto) Absolute Nucleated RBC Nucleated RBC % Sodium Potassium Chloride Carbon Dioxide Anion Gap BUN Creatinine Estimated GFR (MDRD) Glucose Calcium Total Bilirubin AST ALT Alkaline Phosphatase Troponin I High Sens 5.4 Total Protein Albumin Globulin Albumin/Globulin Ratio Lipase PD MEDICAL DECISION MAKING - ED course ED course: Heart score 3 46-year-old gentleman with what sounds are a viral syndrome but today developed some chest pain. He has a nonischemic EKG actually was quite normal. And negative biomarkers. He does score a few squint points on the heart score for his family history and tobacco use although noting he vapes not smokes. Also one-point for his age since he is 46. Second troponin done and both were negative and normal without significant delta. He is chest pain-free throughout his evaluation here. Departure - Departure Disposition: 01 Home, Self Care Clinical Impression: Chest pain Qualifiers: Chest pain type: unspecified Qualified Code(s): R07.9 - Chest pain, unspecified Fatigue Qualifiers: Fatigue type: unspecified Qualified Code(s): R53.83 - Other fatigue Condition: Good Record reviewed to determine appropriate education?: Yes Instructions: ED Chest Pain Atypical Unkn Cause Comments: As discussed, there is no evidence of anything serious going on today, that said given your family history seems reasonable for you to follow-up for a stress test despite negative heart testing here. Discuss this with your physician, next available appointment. Return for new or worsening symptoms. Discharge Date/Time: 08/02/21 19:13
[2021-08-02 18:42] VITALS: BP 127/85
== END 2021-08-02 19:13 | disposition home or self-care (01) ==
LOC: ED 16:29
DX: R53.83 Other fatigue (principal); R07.9 Chest pain, unspecified; I48.91 Unspecified atrial fibrillation; F17.290 Nicotine dependence, other tobacco product, uncomplicated
CPT/HCPCS: 36415; 80053; 83690; 84484; 85025; 93005; 99282; 99284

== ENCOUNTER 2023-05-28 12:52 | Emergency (ER) | payer OTHER ==
--- NOTE | 2023-05-28 13:12 | ED Physician Documentation ---
PD HPI CHEST PAIN - Stated complaint Stated Complaint: SOA/SWEATING/LIGHT HEAD - Chief complaint Chief Complaint: Cardiac - History obtained from History obtained from: Patient - Additional information Additional information: 48-year-old gentleman has a history of A-fib, in 2017 had a cardioversion and subsequent ablation. Recently was identified to be back in A-fib and has an appoint with cardiology in 2 weeks. Is on metoprolol for same. Had an ambulatory monitor a couple months ago showing predominantly A-fib. Over the last 2 days has had episodic lightheadedness with mild chest tightness. Feeling asymptomatic now. PD PAST MEDICAL HISTORY - Past Medical History Past Medical History: Yes Cardiovascular: Atrial fibrillation Respiratory: None Neuro: None Endocrine/Autoimmune: None GI: None : None HEENT: None Psych: Anxiety, Other Musculoskeletal: None Derm: None - Past Surgical History Past Surgical History: Yes Cardiovascular: Other - Present Medications Home Medications: Ambulatory Orders Medication Instructions Recorded Confirmed Apixaban [Eliquis] 1 tab PO BID #60 tablet 05/28/23 Metoprolol Succinate [Toprol Xl] 50 mg PO DAILY 05/28/23 05/28/23 Vilazodone HCl [Viibryd] 40 mg PO DAILY 05/28/23 05/28/23 - Allergies Allergies/Adverse Reactions: Allergies Allergy/AdvReac Type Severity Reaction Status Date / Time No Known Drug Allergies Allergy Verified 05/28/23 12:55 - Social History Does the pt smoke?: No Smoking Status: Never smoker Does the pt drink ETOH?: No Does the pt have substance abuse?: Yes - Immunizations Immunizations are current?: Yes - POLST Patient has POLST: No PD ED PE NORMAL - Vitals Vital signs reviewed: Yes - General General: Alert and oriented X 3, No acute distress - Cardiac Cardiac: Other (Irregularly irregular without murmur) - Respiratory Respiratory: No respiratory distress, Clear bilaterally - Abdomen Abdomen: Non tender - Neuro Neuro: Alert and oriented X 3, Normal speech Results - Vitals Vitals: Vital Signs - 24 hr 05/28/23 05/28/23 12:55 13:17 Temperature 36.8 C Heart Rate 55 L 94 Respiratory 16 28 H Rate Blood Pressure 200/107 H 143/93 H O2 Saturation 98 96 Oxygen O2 Source Room air - EKG (time done) 1340 EKG releavant findings:: EKG personally interpreted by author of this note. Relevant findings are: Rate: Rate (enter#) (63) Rhythm: Atrial fibrillation [place]: Normal QRS: Normal Ischemia: Non specific changes. No: ST elevation c/w ischemia, ST depression - Labs Labs: Laboratory Tests 05/28/23 05/28/23 13:19 13:19 WBC 5.6 RBC 4.87 Hgb 15.4 Hct 43.2 MCV 88.7 MCH 31.6 H MCHC 35.6 RDW 11.9 L Plt Count 262 MPV 9.3 Neut # (Auto) 2.5 Lymph # (Auto) 2.5 [place] # (Auto) 0.3 Eos # (Auto) 0.2 Baso # (Auto) 0.1 Absolute Nucleated RBC 0.00 Nucleated RBC % 0.0 Sodium 137 Potassium 3.9 Chloride 101 Carbon Dioxide 26 Anion Gap 10.0 BUN 17 Creatinine 1.1 Estimated GFR (MDRD) 72 L Glucose 106 H Calcium 9.2 Magnesium 1.7 Total Bilirubin 0.6 AST 42 ALT 73 H Alkaline Phosphatase 73 Total Protein 7.4 Albumin 4.5 Globulin 2.9 Albumin/Globulin Ratio 1.6 TSH 2.82 PD Medical Decision Making - ED course ED course: 48-year-old gentleman who is in A-fib and has symptoms related to same. No ischemic sounding chest pain. We discussed cardioversion but it is not clear when he went into A-fib and previous monitoring showed predominantly A-fib so not being anticoagulated probably not indicated. He is rate controlled. Departure - Departure Disposition: 01 Home, Self Care Clinical Impression: Atrial fibrillation Qualifiers: Atrial fibrillation type: unspecified Qualified Code(s): I48.91 - Unspecified atrial fibrillation Condition: Good Instructions: Atrial Fibrillation Dc Prescriptions: Apixaban [Eliquis] 1 tab PO BID #60 tablet Comments: At this point it does not seem like anything serious is going on other than the atrial fibrillation. Labs are looking okay. I am starting you on a blood thinner. Continue your metoprolol. Follow-up with the nurse educator in 2 weeks as scheduled. Return for new or worsening symptoms.While on the blood thinner you are at increased risk for bleeding, try to avoid activities that could lead to major trauma. Forms: PCP List
[2023-05-28 13:18] VITALS: O2SAT 96
[2023-05-28 13:30] LABS: BASOPHILS # (AUTO) 0.1 10^3/uL (0.0-0.1); BASOPHILS % (AUTO) 1.4 %; EOSINOPHILS # (AUTO) 0.2 10^3/uL (0.0-0.7); EOSINOPHILS % (AUTO) 3.4 %; HCT - HEMATOCRIT 43.2 % (42.0-52.0); HGB - HEMOGLOBIN 15.4 g/dL (14.0-18.0); LYMPHOCYTES # (AUTO) 2.5 10^3/uL (1.5-3.5); LYMPHOCYTES % (AUTO) 44.4 %; MEAN CORPUSCULAR HEMOGLOBIN 31.6 pg (27.0-31.0); MEAN CORPUSCULAR HGB CONC 35.6 g/dL (32.0-36.0); MEAN CORPUSCULAR VOLUME 88.7 fL (80.0-94.0); MEAN PLATELET VOLUME 9.3 fL (7.4-11.4); MONOCYTES # (AUTO) 0.3 10^3/uL (0.0-1.0); MONOCYTES % (AUTO) 5.5 %; NEUTROPHILS # (AUTO) 2.5 10^3/uL (1.5-6.6); NEUTROPHILS % (AUTO) 44.6 %; PLT - PLATELET COUNT 262 10^3/uL (130-450); RED BLOOD COUNT 4.87 10^6/uL (4.70-6.10); RED CELL DISTRIBUTION WIDTH 11.9 % (12.0-15.0); WHITE BLOOD COUNT 5.6 x10^3/uL (4.8-10.8)
[2023-05-28 13:57] LABS: ALBUMIN 4.5 g/dL (3.2-5.5); ALBUMIN/GLOBULIN RATIO 1.6 (1.0-2.2); BILIRUBIN,TOTAL 0.6 mg/dL (0.2-1.0); CALCIUM 9.2 mg/dL (8.5-10.3); CREATININE 1.1 mg/dL (0.6-1.3); MAGNESIUM 1.7 mg/dL (1.7-2.3); POTASSIUM 3.9 mmol/L (3.5-4.5); TOTAL PROTEIN 7.4 g/dL (6.4-8.9)
[2023-05-28 13:58] LABS: THYROID STIMULATING HORMONE 2.82 uIU/mL (0.34-5.60)
[2023-05-28 14:12] VITALS: BP 117/93
== END 2023-05-28 14:23 | disposition home or self-care (01) ==
LOC: ED 12:52
DX: I48.91 Unspecified atrial fibrillation (principal); Z79.01 Long term (current) use of anticoagulants
CPT/HCPCS: 36415; 80053; 83735; 84443; 85025; 93005; 99283; 99284